=== PATIENT | female | born 1965 | race Caucasian/White ===

== ENCOUNTER 2023-08-06 10:32 | Emergency (ER) | payer OTHER, BC, SELFPAY ==
[2023-08-06 10:34] VITALS: BP 158/95
[2023-08-06 10:58] VITALS: BMI 28.5
--- NOTE | 2023-08-06 11:02 | ED.GENMED ---
History of Present Illness
<Gera Alcaraz PA-C - Last Filed: 08/06/23 12:58>
General
Chief Complaint: Fainting/Passed Out
Source: patient
Exam Limitations: none
Time Seen by Provider: 08/06/23 10:45
Travel History
Have you had any contact with someone who has COVID-19?: No
Do you have any symptoms of coronavirus? Fever > 100 degrees, chills, cough, shortness of breath, sore throat, loss of taste or smell, muscle aches, or headache?: No
History of Present Illness
History of Present Illness:
58-year-old female presents after syncopal episode overnight. She got out of bed and she thinks she passed out and hit her head on her nightstand. She woke up after she hit her head. She notes a slight headache but denies vision change. She is
not anticoagulated. No neck pain. She states she has not been feeling herself over the past several days and has been occasionally lightheaded at feeling off. No fevers or cough. No other complaints at this time
Phy Exam
<LUIS ENRIQUE Epperson Last Filed: 08/06/23 12:58>
Physical Exam
Physical Exam:
General: Well-appearing female no acute respiratory distress
HEENT: Normocephalic pupils equal round reactive to light TMs normal. There is a vertically oriented laceration measuring 3-1/2 cm at the medial aspect of the left eyebrow and superior to this into the mid forehead. This is deep through the
subcutaneous tissue.
Neurologic: Alert and oriented normal gait conversing appropriately good muscle tone no drift extract motions are intact
Musculoskeletal exam: The cervical spine is nontender
Heart: Regular rate and rhythm: Subtle holosystolic ejection murmur
Extremities: No cyanosis
Course
<LUIS ENRIQUE Epperson Last Filed: 08/06/23 12:58>
Orders/Labs/Results
Orders:
Orders
08/06/23 10:47
EKG [Electrocardiogram (*1)] Urgent
Reason for Study: Syncope
EKG- Treatment ONCE
08/06/23 10:56
CT Head W/o Iv Contrast Urgent
Comment:
Reason For Exam: fall
08/06/23 11:01
Complete Blood Count/With Diff Urgent
Comprehensive Metabolic Panel Urgent
Abnormal Lab Results
08/06/23
11:01
MCH 31.2 H pg
(27.0-31.0)
MPV 10.7 H fL
(7.4-10.4)
Neutrophils % 75.8 H %
(42.2-75.2)
Lymphocytes % 19.1 L %
(20.5-51.1)
Sodium 134 L mmol/L
(135-145)
Chloride 97 L mmol/L
(98-107)
Glucose 123 H mg/dl
(70-99)
Calcium 10.4 H mg/dl
(8.4-10.2)
08/06/23 11:01
08/06/23 11:01
Vital Signs
Initial and Last Documented VS:
Initial Vital Signs
Temp Pulse Resp BP Pulse Ox
98.4 F 82 18 158/95 99
08/06/23 10:34 08/06/23 10:34 08/06/23 10:34 08/06/23 10:34 08/06/23 10:34
Last Documented Vital Signs
Temp Pulse Resp BP Pulse Ox
98.4 F 82 18 158/95 99
08/06/23 10:34 08/06/23 10:34 08/06/23 10:34 08/06/23 10:34 08/06/23 10:34
<Gretel Taylor PA-C - Last Filed: 08/06/23 12:59>
Orders/Labs/Results
Orders:
Orders
08/06/23 10:47
EKG [Electrocardiogram (*1)] Urgent
Reason for Study: Syncope
EKG- Treatment ONCE
08/06/23 10:56
CT Head W/o Iv Contrast Urgent
Comment:
Reason For Exam: fall
08/06/23 11:01
Complete Blood Count/With Diff Urgent
Comprehensive Metabolic Panel Urgent
Abnormal Lab Results
08/06/23
11:01
MCH 31.2 H pg
(27.0-31.0)
MPV 10.7 H fL
(7.4-10.4)
Neutrophils % 75.8 H %
(42.2-75.2)
Lymphocytes % 19.1 L %
(20.5-51.1)
Sodium 134 L mmol/L
(135-145)
Chloride 97 L mmol/L
(98-107)
Glucose 123 H mg/dl
(70-99)
Calcium 10.4 H mg/dl
(8.4-10.2)
08/06/23 11:01
08/06/23 11:01
Vital Signs
Initial and Last Documented VS:
Initial Vital Signs
Temp Pulse Resp BP Pulse Ox
98.4 F 82 18 158/95 99
08/06/23 10:34 08/06/23 10:34 08/06/23 10:34 08/06/23 10:34 08/06/23 10:34
Last Documented Vital Signs
Temp Pulse Resp BP Pulse Ox
98.4 F 82 18 158/95 99
08/06/23 10:34 08/06/23 10:34 08/06/23 10:34 08/06/23 10:34 08/06/23 10:34
Procedures
<Gretel Taylor PA-C - Last Filed: 08/06/23 12:59>
Laceration Closure
Left Eye brow:
Status of Wound: clean
Size of Wound in cm: 4
Description of Wound Edges: sharp
Preparation: cleaned with saline
Anesthesia: 1% Lidocaine
Revision/Debridement: routine- no revision
Wound exploration: explored to base- no FB
Type of Closure: layered closure
Skin Closure Material: 5-0 prolene and 5-0 vicryl
Number of sutures: 14
<Gera Alcaraz PA-C - Last Filed: 08/06/23 12:58>
MDM/Problems Addressed
Differential Diagnosis Includes:
Syncope and fall. Question possible orthostasis. Will check for arrhythmias. Given the head trauma CT of the head pending. Will check labs as well. EKG shows sinus rhythm with rate of 80 no ischemic changes
<LUIS ENRIQUE Epperson Last Filed: 08/06/23 12:58>
*Critical Care Note
Total Time (30-74mins, 75-104mins- exclusive of procedures): Not Applicable
<Gera Alcaraz PA-C - Last Filed: 08/06/23 12:58>
Update Note
Update Note:
Workup here unremarkable. CT of the head was negative. Labs reviewed without any significant finding. Significant other has since entered the room. He discloses that the patient drinks alcohol significantly. He states this is why she fell last
night. This was not disclosed when I was in the room initially. Offered her to speak with anyone from alcohol rehab or the care center however she states she will take care of her and she not interested in talking anyone. Stable for discharge
with follow-up with family doctor
ED Attending Note
<Gera Alcaraz PA-C - Last Filed: 08/06/23 12:58>
-
Portions of this chart may have been created with voice recognition software.� Occasional wrong word or��sound alike� substitutions may have occurred due to the inherent limitations of voice recognition software.
Discharge Plan
Departure
Patient Disposition: Home (Routine Discharge)
Discharge Problem:
Laceration
Instructions: Syncope (Fainting) (DC), Laceration
Referrals:
UNKNOWN - PT DOES,NOT KNOW [Family Provider] -
Activity Restrictions/Additional Instructions:
Have sutures removed in 5 to 7 days. Apply antibacterial ointment daily. You may apply ice. Return if needed
Interventions
Interventions:
*Risk Screen - Suicide Last Done: 08/06/23 10:57
*General Assessment Last Done: 08/06/23 10:57
*Neglect/Abuse Screening Last Done: 08/06/23 10:57
ED- Fall Risk Assessment Last Done: 08/06/23 11:06
*ED COVID-19 Vaccine History Last Done: 08/06/23 10:57
ED- Cardiac Assessment Last Done: 08/06/23 10:58
ED- Neurological Assessment Last Done: 08/06/23 10:58
Discharge Date and Time
Print Language: WELSH
[2023-08-06 11:12] LABS: % Basophils 0.4 % (0-2); % Eosinophils 0.1 % (0-6); % Immature Granulocytes 0.4 % (0-0.5); % Lymphocytes 19.1 % (20.5-51.1); % Monocytes 4.2 % (1.7-9.3); % Neutrophils 75.8 % (42.2-75.2); Absolute Lymphocytes 1.4 10^3/uL (1.2-3.4); Absolute Monocytes 0.3 10^3/uL (0.1-0.6); Absolute Neutrophils 5.3 10^3/uL (1.4-6.5); Hematocrit 40.6 % (37.0-47.0); Mean Corp Hgb Conc. 34.5 g/dL (33.0-37.0); Mean Corpuscular Hgb 31.2 pg (27.0-31.0); Mean Corpuscular Volume 90.4 fL (81.0-99.0); Mean Platelet Volume 10.7 fL (7.4-10.4); Nucleated Red Blood Cells % 0 %; Platelet Count 177 10^3/uL (130-400); Red Blood Cell Count 4.49 10^6/uL (4.20-5.40); Red Cell Dist. Width 11.9 % (11.5-14.5); White Blood Cell Count 7.1 10^3/uL (4.8-10.8)
[2023-08-06 11:23] LABS: ALT (SGPT) 24 U/L (0-35); AST (SGOT) 36 U/L (14-36); Albumin 4.8 g/dl (3.5-5.0); Alkaline Phosphatase 77 U/L (38-126); Blood Urea Nitrogen 17 mg/dl (7-17); Calcium 10.4 mg/dl (8.4-10.2); Carbon Dioxide 22 mmol/L (22-30); Chloride 97 mmol/L (98-107); Estimated Creatinine Clearance 109 ml/min; Glucose 123 mg/dl (70-99); Potassium 4.1 mmol/L (3.5-5.1); Sodium 134 mmol/L (135-145); Total Bilirubin 0.3 mg/dl (0.2-1.3); Total Protein 7.8 g/dl (6.3-8.2); eGFR > 60.00
[2023-08-06 13:20] VITALS: BP 140/95
== END 2023-08-06 13:21 | disposition home or self-care (01) ==
LOC: EMR 10:32
PROVIDERS: Physician Assistant; EMERGENCY PHYSICIAN Emergency Medicine
DX: S01.112A Laceration without foreign body of left eyelid and periocular area, initial encounter (principal); W19.XXXA Unspecified fall, initial encounter
CPT/HCPCS: 99284; 12052; 70450; 80053; 85025; 93005

== ENCOUNTER → 2024-08-17 14:40 | Outpatient (REF) | payer BC, SELFPAY | LOC: HWWDC 14:40 | PROVIDERS: ATTENDING PHYSICIAN Student in an Organized Health Care Education/Training Program | DX: Z12.31 Encounter for screening mammogram for malignant neoplasm of breast (principal) | CPT/HCPCS: 77063; 77067 ==

== ENCOUNTER → 2024-08-31 09:16 | Outpatient (REF) | payer BC, SELFPAY | LOC: WDC 09:16 | PROVIDERS: ATTENDING PHYSICIAN Student in an Organized Health Care Education/Training Program | DX: R92.8 Other abnormal and inconclusive findings on diagnostic imaging of breast (principal) | CPT/HCPCS: 76642 ==